=== PATIENT | male | born 1935 | race Two or more races ===

== ENCOUNTER 2016-10-09 23:58 | Inpatient (IN) | payer MEDICARE, OTHER ==
[~2016-10-09] VITALS: Ht 162.6 cm; Wt 41.3 kg
[2016-10-10] VITALS (8 sets, daily range): BP systolic 122–141; BP diastolic 54–63
--- NOTE | 2016-10-10 00:05 | NUR ---
PT CHENCHO FROM HALFWAY, PER EMS PT FAMILY WANTED PT TO LEAVE THE HALFWAY BECAUSE PT THOUGHT THE HALFWAY WASNT TAKING CARE OF THE PT, PT IS A TRACH TO VENT, RT IN ROOM, AT BEDSIDE, PT STATES PT WAS DIAPHRETIC PRIOR TO ARRIVAL BUT WAS NOT UPON ARRIVAL TO ER, IV PLACED PRIOR TO ARRIVAL, PT IN GOWN, ON MONITOR, WILL CONTINUE TO MONITOR.
[2016-10-10 00:32] LABS: BASOPHILS % (AUTO) 0.5 % (0.0-2.0); EOSINOPHILS # (AUTO) 0.1 /CMM (0.0-0.7); HEMATOCRIT 25 % (39-51); HEMOGLOBIN 8.2 g/dL (13.5-17.5); LYMPHOCYTES # (AUTO) 1.3 /CMM (0.8-4.8); LYMPHOCYTES % (AUTO) 19.5 % (20.0-44.0); MEAN CORPUSCULAR HEMOGLOBIN 30 PG (26.0-33.0); MEAN CORPUSCULAR HGB CONC 32 g/dl (31.0-36.0); MEAN CORPUSCULAR VOLUME 91 fL (80-96); MONOCYTES # (AUTO) 0.3 /CMM (0.1-1.30); NEUTROPHILS # (AUTO) 4.8 /CMM (1.8-8.9); PLATELET COUNT (AUTO) 309 /CMM (150-450); RDW COEFFICIENT OF VARIATION 15.1 (11.5-15.0); RED BLOOD CELL COUNT(AUTO) 2.77 MIL/uL (4.5-6.0); WHITE BLOOD COUNT (AUTO) 6.5 K/uL (4.3-11.0)
[2016-10-10 00:44] LABS: CALCIUM, SERUM 9.3 mg/dL (8.5-10.1); CARBON DIOXIDE 38 mmol/L (21-32); CHLORIDE 104 mmol/L (98-107); CREATININE 0.6 mg/dL (0.6-1.3); GLUCOSE 107 mg/dL (74-106); POTASSIUM 3.9 mmol/L (3.5-5.1); SODIUM SERUM 143 mmol/L (136-145); UREA NITROGEN, BLOOD 22 mg/dL (7-18)
[2016-10-10 00:49] LABS: ALANINE AMINOTRANSFERASE 29 U/L (12-78); ALBUMIN 2.3 g/dL (3.4-5.0); ALKALINE PHOSPHATASE 87 U/L (46-116); ASPARTATE AMINOTRANSFERASE 23 U/L (15-37); BILIRUBIN,TOTAL 0.2 mg/dL (0.2-1.0); LIPASE 113 U/L (73-393)
--- NOTE | 2016-10-10 00:59 | NUR ---
URINE COLLECTED BY STRAIGHT CATH PER ORDER
[2016-10-10 01:12] LABS: APPEARANCE,URINE SL CLOUDY (CLEAR); BILIRUBIN,URINE NEGATIVE (NEGATIVE); BLOOD, URINE 1+ Ery/uL (NEGATIVE); COLOR,URINE YELLOW (YELLOW); KETONES,URINE NEGATIVE (NEGATIVE); LEUKOCYTE ESTERASE ,URINE TRACE (NEGATIVE); NITRITE, URINE NEGATIVE (NEGATIVE); PH,URINE 5.5 (5.0-8.0); PROTEIN,URINE 2+ mg/dl (NEGATIVE); UGLUCOSE NEGATIVE (NEGATIVE); UROBILINOGEN,URINE 0.2 EU/dL (0.2)
[2016-10-10 01:16] LABS: SQUAMOUS EPITHELIAL CELL,UR Few /HPF (None Seen)
[2016-10-10 01:17] LABS: BACTERIA,URINE Moderate /HPF (None Seen)
[2016-10-10] MEDS ORDERED: CEFTRIAXONE 1GM BAG (ER ONLY) 50 ML IV ONE (01:53)
[2016-10-10] MEDS ORDERED: CEFTRIAXONE 1 G in IV D5W 50 ML IV SCH (02:00)
[2016-10-10] MEDS ORDERED: ONDANSETRON HCL/PF 4 MG/2 ML VIAL IVP PRN (02:00)
[2016-10-10] MEDS ORDERED: MAGNESIUM HYDROXIDE 30 ML UDC PO PRN (02:00)
[2016-10-10] MEDS ORDERED: Z GUARD REMEDY 2 OZ OINT TP PRN (02:00)
[2016-10-10] MEDS ORDERED: CEFTRIAXONE 1GM BAG (ER ONLY) 1 GM/50 ML PIGGYBACK IV ONE (02:00)
[2016-10-10] MEDS ORDERED: MAG HYDROX/AL HYDROX/SIMETH 30 ML UDC PO PRN (02:00)
[2016-10-10] MEDS ORDERED: ALBU0.633 IH (02:29)
[2016-10-10] MEDS ORDERED: PSYL0.4C GT (02:29)
[2016-10-10] MEDS ORDERED: ACET-73 PO (02:29)
[2016-10-10] MEDS ORDERED: MULT-331 GT (02:29)
[2016-10-10] MEDS ORDERED: AMLO10TA2 GT (02:29)
[2016-10-10] MEDS ORDERED: HYDR-4076 PO (02:29)
[2016-10-10] MEDS ORDERED: FERR-58 GT (02:29)
[2016-10-10] MEDS ORDERED: ONDA-25 PO (02:29)
[2016-10-10] MEDS ORDERED: LANS30CA56 GT (02:29)
[2016-10-10] MEDS ORDERED: ENOX40DI SUBCUT (02:29)
[2016-10-10] MEDS ORDERED: LISI10TA5 GT (02:29)
--- NOTE | 2016-10-10 02:35 | NUR ---
RN OPENING NOTES: RECEIVED PATIENT FROM ER VIA GURNEY, PATIENT TRACHED TO [facility] VENT WITH SETTINGS ORDERED, NOT IN APPARENT DISTRESS. RESPONSIVE TO VERBAL AND TACTILE, WITH SPONTANEOUS EYE OPENING, EYE TRACKS AND NODS RESPONSE. SINUS ARRHYTHMIA ON MONITOR HR AT 87 BPM. IV ACCESS ON R AC G20 PATENT AND INTACT, WITH ROCEPHIN 1 GRAM RUNNING; SKIN CHECK DONE AND PHOTODOCUMENTATION FILED ON CHART. GT INTACT AND PATENT, CLAMPED AT THIS TIME. PATIENT URINATING WELL ALSO NOTED WITH 1 LARGE FORMED STOOL. ADMITTING ORDERED NOTED AND CARRIED OUT. TO CONTINUE TO MONITOR PATIENT.
[2016-10-10] MEDS ORDERED: LACT-209 GT (03:51)
[2016-10-10] MEDS ORDERED: FIBERSOURCE HN 1,000 ML BOTTLE GT PRN (06:30)
--- NOTE | 2016-10-10 06:47 | NUR ---
RN NOTES: 604 CALLED REDUCER SUPERVISOR MAINSPRING FABRICATION JEYSON, TO REMIND TO VERIFY MED RECON. AGREED TO CONTINUE TUBE FEEDING FROM PREVIOUS FACILITY ([facility] TO FIBERSOURCE) AND NO IVF ORDERED. PATIENT REMAINED ON BED NOT IN APPARENT DISTRESS. KEPT TRACH TO [facility] VENT SETTINGS ORDERED TOLERATED WELL. COOLING MEASURES RENDERED. NOW AFEBRILE. SKIN CARE RENDERED. STARTED PATIENT ON FEEDING ORDERED. ASPIRATION [id number] ENSURED. CONTINUOUSLY MONITORED ACCORDINGLY. TO ENDORSE TO AM SHIFT RN.
--- NOTE | 2016-10-10 07:33 | NUR ---
CHILDREN'S MINISTRY DIRECTOR NOTES RECEIVED PT BY BED RESTING COMFORTABLY. PT IS VENT TRACH DEPENDENT BUT CAN BE AROUSED. NO SOB NOTED. TOLERATING VENT SETTINGS WELL. RIGHT ARM IV GAUGE 20 DRY AND INTACT. SR WITH PACS ON THE MONITOR HR 75. GTUBE FEEDING RUNNING AT 75ML/HR NO RESIDUAL. BED LOCKED AND IN LOWEST POSITION, CALL LIGHT WITHIN EASY REACH. WILL CONTINUE TO MONITOR.
--- NOTE | 2016-10-10 09:53 | NUR ---
TOUR PRODUCTION SUPERVISOR NOTE DR POLANCO AT BEDSIDE AWARE THAT BUN 22 WITH ORDER TO FLUSH G TUBE WITH 200 ML Q 4 HOUR , ORDER CARRIED OUT
--- NOTE | 2016-10-10 10:09 | NUR ---
HELP AID NOTE DR POLANCO AT BEDSIDE, NOTIFIED TO F/O WITH MED RECON.
--- NOTE | 2016-10-10 11:43 | NUR ---
EMT/DISPATCHER NOTES SPOKE WITH DIETARY, GTUBE RATE CHANGED TO 60ML/HR. MULTIVITAMIN AND VIT C ORDERED. Addendum: 10/10/16 at 1145 by VERNA PIERCE RN ALEX JOHNMIXING MACHINE OPERATOR NURSE AT BEDSIDE, WOUND CONSULT DONE. I MATTRESS WILL BE PLACED.
[2016-10-10] MEDS: Z GUARD REMEDY 2 OZ OINT TP SCH (13:12)
[2016-10-10] MEDS: ACETAMINOPHEN 325 MG TABLET PO PRN ×2 (13:56→22:34)
[2016-10-10 15:29] LABS: ABG BASE EXCESS 12.6 mmol/L; ABG PCO2 58.6 mmHg (35.0-45.0); ABG PH 7.434 (7.350-7.450); ABG PO2 101.9 mmHg (75.0-100.0); AaDO2 115.9 mmHg; COHb 1.2 % (0.5-1.5); MetHb 1.3 % (0.0-1.5); O2Hb 94.6 % (94.0-97.0); PEEP,BG 5 cm H2O; SITE, ABG Right Radial; VT, ABG 400 mL
--- NOTE | 2016-10-10 17:14 | NUR ---
DESKTOP SUPPORT MANAGER NOTE [facility] MATTRESS APPLIED, PT REPOSITIONED. FAMILY AND BEDSIDE WILL CONTINUE TO MONITOR.
--- NOTE | 2016-10-10 18:53 | NUR ---
RN NOTES PT RESTING COMFORTABLY WITH AT BEDSIDE. NO SOB NOTED. TOLERATING VENT SETTINGS. TOLERATING GTUBE FEEDING. NO CHANGES NOTED AT THIS TIME. BED LOCKED AND IN LOWEST POSITION, SIDE RAILS UPX3, CALL LIGHT WITHIN REACH.
--- NOTE | 2016-10-10 19:30 | NUR ---
LOSS PREVENTION AUDITOR INITIAL NOTE PT RECEIVED IN BED WITH FAMILY AT BEDSIDE. A/O X1-2, NON VERBAL BUT MOUTHS WORDS AND ABLE TO MAKE NEEDS KNOWN. ON MECH VENT WITH SETTINGS WELL TOLERATED AND SATURATING WELL AT 100%. TELE- 85 SR WITH PVC'S. IV R HAND CLEAN, DRY, INTACT AND FLUSHING WELL. GTUBE CLEAN AND PATENT WITHOUT RESIDUALS NOTED AT THIS TIME. ALL SAFETY MEASURES IN PLACE. CALL LIGHT WITHIN EASY REACH. WILL CONTINUE TO MONITOR.
[2016-10-10] MEDS: HYDROCODONE/APAP 5/325MG 1 EACH TABLET PO PRN (20:20)
[2016-10-10] MEDS: IPRATROPIUM NEB FS 0.5 MG/2.5 ML AMPUL.NEB NEB SCH (20:23)
[2016-10-10] MEDS: ALBUTEROL HALF STRENGTH 1.25 MG/3 ML VIAL.NEB NEB SCH (20:23)
[2016-10-10] MEDS: CEFTRIAXONE 1 G in IV D5W 50 ML IV SCH (22:33)
[2016-10-10] MEDS: FIBERSOURCE HN 1,000 ML BOTTLE GT PRN (22:34)
[2016-10-11] VITALS: BP 142/70
[2016-10-11] MEDS: ALBUTEROL HALF STRENGTH 1.25 MG/3 ML VIAL.NEB NEB SCH ×4 (02:07→19:57)
[2016-10-11] MEDS: IPRATROPIUM NEB FS 0.5 MG/2.5 ML AMPUL.NEB NEB SCH ×4 (02:07→19:57)
[2016-10-11 04:00] VITALS: BP 133/55
[2016-10-11 07:14] LABS: BASOPHILS % (AUTO) 0.2 % (0.0-2.0); EOSINOPHILS # (AUTO) 0.2 /CMM (0.0-0.7); HEMATOCRIT 23 % (39-51); HEMOGLOBIN 7.6 g/dL (13.5-17.5); LYMPHOCYTES # (AUTO) 1.2 /CMM (0.8-4.8); LYMPHOCYTES % (AUTO) 13.2 % (20.0-44.0); MEAN CORPUSCULAR HEMOGLOBIN 31 PG (26.0-33.0); MEAN CORPUSCULAR HGB CONC 33 g/dl (31.0-36.0); MEAN CORPUSCULAR VOLUME 92 fL (80-96); MONOCYTES # (AUTO) 0.6 /CMM (0.1-1.30); MONOCYTES % (AUTO) 6.9 % (2.0-12.0); NEUTROPHILS # (AUTO) 7.1 /CMM (1.8-8.9); NEUTROPHILS % (AUTO) 77.7 % (43.0-81.0); PLATELET COUNT (AUTO) 293 /CMM (150-450); RDW COEFFICIENT OF VARIATION 15.1 (11.5-15.0); RED BLOOD CELL COUNT(AUTO) 2.48 MIL/uL (4.5-6.0); WHITE BLOOD COUNT (AUTO) 9.1 K/uL (4.3-11.0)
[2016-10-11 07:56] LABS: CALCIUM, SERUM 9.1 mg/dL (8.5-10.1); CARBON DIOXIDE 38 mmol/L (21-32); CHLORIDE 106 mmol/L (98-107); CREATININE 0.7 mg/dL (0.6-1.3); GLUCOSE 131 mg/dL (74-106); MAGNESIUM 2.2 mg/dL (1.8-2.4); PHOSPHORUS 5.1 mg/dL (2.5-4.9); POTASSIUM 4.5 mmol/L (3.5-5.1); SODIUM SERUM 147 mmol/L (136-145); UREA NITROGEN, BLOOD 29 mg/dL (7-18)
[2016-10-11 08:00] VITALS: BP_SYST 133; BP_SYST 136; BP_DIAS 55; BP_DIAS 64
--- NOTE | 2016-10-11 08:00 | NUR ---
SALES MANAGEMENT INTERN INITIAL NOTE PT RECEIVED IN BED . A/O X1-2, NON VERBAL BUT MOUTHS WORDS AND ABLE TO MAKE NEEDS KNOWN. ON MECH VENT WITH SETTINGS WELL TOLERATED AND SATURATING WELL AT 100%. TELE-SR WITH . IV R HAND CLEAN, DRY, INTACT AND FLUSHING WELL. GTUBE CLEAN AND PATENT WITHOUT RESIDUALS NOTED AT THIS TIME. ALL SAFETY MEASURES IN PLACE. CALL LIGHT WITHIN EASY REACH. WILL CONTINUE TO MON, WITH TRACH TO VENT SETTING ORDERED , AMBU BAG AT HOB, KEEP HOB ELEVATED AT ALL TIME, PLAN OF CARE DISCUSSED WITH PATIENT.WILL CONT TO MONITOR CLOSELY ,MOUTH CARE DONE SUCTION DONE RT AT BEDSIDE
[2016-10-11] MEDS: ASCORBIC ACID 500 MG TABLET GT SCH (09:27)
[2016-10-11] MEDS: MULTIVITAMINS,THERAGRAN 1 UDTAB TABLET GT SCH (09:28)
[2016-10-11] MEDS: Z GUARD REMEDY 2 OZ OINT TP SCH (09:28)
[2016-10-11] MEDS: HYDROCODONE/APAP 5/325MG 1 EACH TABLET PO PRN (09:40)
[2016-10-11 10:03] LABS: CHOLESTEROL 155 mg/dL (<200); HDL CHOLESTEROL 44 mg/dL (40-60); LDL 103 mg/dL (0-99); TRIGLYCERIDES 83 mg/dL (30-150)
[2016-10-11 12:00] VITALS: BP_SYST 120; BP_SYST 121; BP_DIAS 60
--- NOTE | 2016-10-11 12:30 | NUR ---
P 3 ARMAMENT/ORDNANCE IMA TECHNICIAN NOTE KEEP CLEAN DRY ,CONT G TUBE FEEDING ,ALL NEEDS ATTENDED ,WILL CONT TO MONITOR CLOSELY
[2016-10-11 16:00] VITALS: BP 133/66
[2016-10-11 18:10] LABS: THYROID STIMULATING HORMONE 3.213 uIU/mL (0.358-3.74)
--- NOTE | 2016-10-11 18:33 | NUR ---
MANUFACTURING ASSEMBLER NOTE ALL NEEDS ATTENDED NOT IN ACUTE DISTRESS
--- NOTE | 2016-10-11 19:30 | NUR ---
NIGHT WAREHOUSE MANAGER INITIAL NOTE PT RECEIVED COMFORTABLE IN BED. A/O X1-2 AND ABLE TO MOUTH SOME WORDS. ON MECH VENT WITH SETTINGS WELL TOLERATED. NO ACUTE DISTRESS NOTED AT THIS TIME. NO C/O PAIN. IV R HAND AND R FOREARM CLEAN, FLUSHING WELL AND INTACT. GTUBE CLEAN, FLUSHING WELL WITHOUT RESIDUALS AND FEEDING WELL TOLERATED. CALL LIGHT WITHIN REACH. WILL CONTINUE TO MONITOR.
[2016-10-11 20:00] VITALS: BP 127/68
[2016-10-11] MEDS: CEFTRIAXONE 1 G in IV D5W 50 ML IV SCH (23:37)
[2016-10-12] VITALS: BP 96/53
[2016-10-12] MEDS: FIBERSOURCE HN 1,000 ML BOTTLE GT PRN ×2 (00:57→23:29)
[2016-10-12] MEDS: IPRATROPIUM NEB FS 0.5 MG/2.5 ML AMPUL.NEB NEB SCH ×4 (02:12→20:00)
[2016-10-12] MEDS: ALBUTEROL HALF STRENGTH 1.25 MG/3 ML VIAL.NEB NEB SCH ×4 (02:12→20:00)
[2016-10-12 04:00] VITALS: BP 124/49
[2016-10-12] MEDS: HYDROCODONE/APAP 5/325MG 1 EACH TABLET PO PRN ×2 (05:23→15:03)
--- NOTE | 2016-10-12 06:45 | NUR ---
AUTHORIZATION NURSE CLOSING NOTE PT REMAINED STABLE DURING SHIFT. ALL NEEDS ATTENDED TO PROMPTLY. PAIN MANAGED WITH PAIN MEDICATION ADMINISTERED AT 0523. VENT SETTINGS WELL TOLERATED. IV SITE INTACT AND CLEAN. GTUBE IN PLACE AND FLUSHING WELL. NO ACUTE DISTRESS NOTED. ALL SAFETY MEASURES IN PLACE. WILL ENDORSE TO NEXT SHIFT FOR ABDULAZIZ.
--- NOTE | 2016-10-12 07:46 | NUR ---
RN INITIAL NOTE RECEIVED PT FROM LAKEISHA PM SHIFT FOR ABDULAZIZ. PT NON VERBAL MOTH WORDS. TELE SR WITH PVC. GTF FIBERSOURCE @ 60 ML/HR. IV R HAND PATENT FLUSHED AND INTACT. WILL CONTINUE TO MONITOR CLOSELY ALL SAFETY MEASURES IN PLACE.
--- NOTE | 2016-10-12 07:49 | NUR ---
RN INITIAL NOTE RECEIVED PT FROM CARLEEN PM SHIFT FOR ABDULAZIZ. PT NC 2 L A/OX1 CONFUSED. TELE SB FC INTACT. NGT R NARE GLYTROL 70 ML/HR . IV R WRIST # 22 PATENT FLUSHED AND INTACT. JUWAN MIDLINE D51/2 NS @ 100 ML/HR. WILL CONTINUE TO MONITOR CLOSELY. ALL SAFETY MEASURES IN PLACE.
[2016-10-12 08:00] VITALS: BP 132/57
[2016-10-12] MEDS: Z GUARD REMEDY 2 OZ OINT TP SCH (08:40)
[2016-10-12] MEDS: MULTIVITAMINS,THERAGRAN 1 UDTAB TABLET GT SCH (08:40)
[2016-10-12] MEDS: ASCORBIC ACID 500 MG TABLET GT SCH (08:40)
[2016-10-12 12:00] VITALS: BP 125/64
[2016-10-12] MEDS: ACETAMINOPHEN 325 MG TABLET PO PRN (13:03)
[2016-10-12 16:00] VITALS: BP 119/58
[2016-10-12 16:24] LABS: BASOPHILS % (AUTO) 0.3 % (0.0-2.0); EOSINOPHILS # (AUTO) 0.2 /CMM (0.0-0.7); EOSINOPHILS % (AUTO) 2.7 % (0.0-6.0); HEMATOCRIT 23 % (39-51); HEMOGLOBIN 7.3 g/dL (13.5-17.5); LYMPHOCYTES # (AUTO) 1.3 /CMM (0.8-4.8); LYMPHOCYTES % (AUTO) 20.6 % (20.0-44.0); MEAN CORPUSCULAR HEMOGLOBIN 30 PG (26.0-33.0); MEAN CORPUSCULAR HGB CONC 32 g/dl (31.0-36.0); MEAN CORPUSCULAR VOLUME 92 fL (80-96); MONOCYTES # (AUTO) 0.6 /CMM (0.1-1.30); MONOCYTES % (AUTO) 9.3 % (2.0-12.0); NEUTROPHILS # (AUTO) 4.2 /CMM (1.8-8.9); NEUTROPHILS % (AUTO) 67.1 % (43.0-81.0); PLATELET COUNT (AUTO) 278 /CMM (150-450); RDW COEFFICIENT OF VARIATION 15.1 (11.5-15.0); RED BLOOD CELL COUNT(AUTO) 2.46 MIL/uL (4.5-6.0); WHITE BLOOD COUNT (AUTO) 6.3 K/uL (4.3-11.0)
--- NOTE | 2016-10-12 19:25 | NUR ---
RN CLOSING NOTE REPORT GIVEN TO LAKEISHA PM SHIFT FOR ABDULAZIZ. PT NC 2 L A/OX1 CONFUSED. TELE SR. FC INTACT. NGT R NARE GLYTROL 70 ML/HR . IV R WRIST # 22 PATENT FLUSHED AND INTACT. JUWAN MIDLINE D51/2 NS @ 100 ML/HR. WILL CONTINUE TO MONITOR CLOSELY. ALL SAFETY MEASURES IN PLACE.
--- NOTE | 2016-10-12 19:30 | NUR ---
THEATRE DIRECTOR INITIAL NOTE PT RECEIVED RESTING IN BED WITH AT BEDSIDE. A/O X1-2 AND ABLE TO MOUTH WORDS. ON [facility] VENT SHILEY 6/ AC 15/ TV 400/ FIO2 35%/ PEEP 5 AND SATURATING WELL. BREATHING REGULAR, EVEN AND UNLABORED. IV R HAND CLEAN AND FLUSHING WELL. TELE- SINUS RHYTHM 70'S. GTUBE IN PLACE AND FLUSHING WELL WITH FEEDING WELL TOLERATED. CALL LIGHT WITHIN EASY REACH AT ALL TIMES. HOB AT 35 DEGREES. WILL CONTINUE TO MONITOR FOR CHANGES.
[2016-10-12 20:00] VITALS: BP_SYST 115; BP_DIAS 61; BP_DIAS 65
[2016-10-12] MEDS: CEFTRIAXONE 1 G in IV D5W 50 ML IV SCH (23:20)
[2016-10-13] VITALS: BP 142/69
[2016-10-13] MEDS: IPRATROPIUM NEB FS 0.5 MG/2.5 ML AMPUL.NEB NEB SCH ×4 (01:31→19:25)
[2016-10-13] MEDS: ALBUTEROL HALF STRENGTH 1.25 MG/3 ML VIAL.NEB NEB SCH ×4 (01:31→19:25)
[2016-10-13 04:00] VITALS: BP 154/70
[2016-10-13 06:29] LABS: BASOPHILS % (AUTO) 0.1 % (0.0-2.0); EOSINOPHILS # (AUTO) 0.2 /CMM (0.0-0.7); EOSINOPHILS % (AUTO) 2.1 % (0.0-6.0); HEMATOCRIT 27 % (39-51); LYMPHOCYTES # (AUTO) 1.9 /CMM (0.8-4.8); LYMPHOCYTES % (AUTO) 18.6 % (20.0-44.0); MEAN CORPUSCULAR HEMOGLOBIN 31 PG (26.0-33.0); MEAN CORPUSCULAR HGB CONC 33 g/dl (31.0-36.0); MEAN CORPUSCULAR VOLUME 92 fL (80-96); MONOCYTES # (AUTO) 0.6 /CMM (0.1-1.30); MONOCYTES % (AUTO) 5.6 % (2.0-12.0); NEUTROPHILS # (AUTO) 7.4 /CMM (1.8-8.9); NEUTROPHILS % (AUTO) 73.6 % (43.0-81.0); PLATELET COUNT (AUTO) 283 /CMM (150-450); RDW COEFFICIENT OF VARIATION 14.9 (11.5-15.0); RED BLOOD CELL COUNT(AUTO) 2.95 MIL/uL (4.5-6.0); WHITE BLOOD COUNT (AUTO) 10.1 K/uL (4.3-11.0)
--- NOTE | 2016-10-13 07:22 | NUR ---
PROTECTION SPECIALIST CLOSING NOTE NO ACUTE DISTRESS NOTED. VENT SETTINGS WELL TOLERATED. ALL NEEDS ATTENDED TO AND MET PROMPTLY. CALL LIGHT WITHIN EASY REACH. ALL SAFETY MEASURES IN PLACE. WILL ENDORSE TO NEXT SHIFT FOR ABDULAZIZ.
--- NOTE | 2016-10-13 07:34 | NUR ---
RN INITIAL NOTE RECEIVED REPORT FROM LAKEISHA CARDONA SHIFT FOR ABDULAZIZ. PT NC 2L . A/OX1-2 MOUTH WORDS. TELE SR. VENT SETTING SHILEY #6 AC 15 TV 400 FI02 35%. PEEP. IV HAND#22 PATENT FLUSHED AND INTACT. GTF FIBERSOURCE @ 60 ML/HR PLACEMENT CK AND PATENT. WILL CONTINUE TO MONITOR CLOSELY. ALL SAFETY MEASURES IN PLACE.
[2016-10-13 08:00] VITALS: BP 124/60
[2016-10-13] MEDS: ASCORBIC ACID 500 MG TABLET GT SCH (08:42)
[2016-10-13] MEDS: HYDROCODONE/APAP 5/325MG 1 EACH TABLET PO PRN ×2 (08:48→20:32)
[2016-10-13] MEDS: MULTIVITAMINS,THERAGRAN 1 UDTAB TABLET GT SCH (08:51)
[2016-10-13] MEDS: Z GUARD REMEDY 2 OZ OINT TP SCH (08:59)
[2016-10-13 12:00] VITALS: BP 104/56
--- NOTE | 2016-10-13 13:35 | NUR ---
WOUND CARE CONSULT NOTE ( LATE ENTRY FOR 10/10/16) PATIENT SEEN AND SKIN INTEGRITY ASSESSMENT DONE. SEE ALLIANCES CONSULTANT ASSESSMENT IN [facility] FOR 10/10/16 FOR ALL RECOMMENDATIONS. TREATMENT PLANS DISCUSSED WITH MD AND MD IN AGREEMENT. PATIENT WITH VAHID AT 11. 1ST STEP LOW AIRLOSS MATTRESS TO BE PLACE WHEN AVAILABLE IN THE UNIT. ALL SKIN MANAGMENT AND PLAN OF CARE DISCUSSED WITH NURSING AT THE BEDSIDE. CONTINUE TURNING SCHED Q 2 HOURS AND BILATERAL HEEL FLOATING. CONTINUE USE OF Z GUARD CURRENTLY ORDERED.
[2016-10-13 16:00] VITALS: BP_SYST 104; BP_SYST 121; BP_DIAS 56; BP_DIAS 58
--- NOTE | 2016-10-13 19:48 | NUR ---
RN INITIAL NOTE RECEIVED REPORT FROM HOANG AM SHIFT FOR ABDULAZIZ. PT NC 2L . A/OX1-2 MOUTH WORDS. TELE SR. VENT SETTING SHILEY #6 AC 15 TV 400 FI02 35%. PEEP. IV HAND#22 PATENT FLUSHED AND INTACT. GTF FIBERSOURCE @ 60 ML/HR PLACEMENT CK AND PATENT. WILL CONTINUE TO MONITOR CLOSELY. ALL SAFETY MEASURES IN PLACE.
[2016-10-13 20:00] VITALS: BP 102/56
--- NOTE | 2016-10-13 20:04 | NUR ---
RN CLOSING NOTE REPORT GIVEN TO DEBBY JOHN PM SHIFT FOR ABDULAZIZ. PT NC 2L . A/OX1-2 MOUTH WORDS. TELE SR. VENT SETTING SHILEY #6 AC 15 TV 400 FI02 35%. PEEP. IV HAND#22 PATENT FLUSHED AND INTACT. GTF FIBERSOURCE @ 60 ML/HR PATENT. ALL SAFETY MEASURES IN PLACE. PT CLEAN AND DRY.
--- NOTE | 2016-10-13 22:12 | NUR ---
PT RECEIVED FROM AM SHIFT NURSE HOANG FOR ABDULAZIZ, AT 2200 PM UPON PROVIDING PM CARE DAHIANA RESIDENTIAL APPRAISER NOTED OLD LT ANKLE SKIN TEAR, PT GIVEN NORCO [phone] PRN FOR PAIN, PHOTO TAKEN, MEPILEX APPLIED TO RED AREA, REPOSITIONED PT, APPEARS COMFORTABLE AFTER CARE.
[2016-10-13] MEDS: CEFTRIAXONE 1 G in IV D5W 50 ML IV SCH (23:33)
[2016-10-14] VITALS: BP_SYST 127; BP_SYST 91; BP_DIAS 40; BP_DIAS 57
[2016-10-14] MEDS: IPRATROPIUM NEB FS 0.5 MG/2.5 ML AMPUL.NEB NEB SCH ×4 (01:35→19:39)
[2016-10-14] MEDS: ALBUTEROL HALF STRENGTH 1.25 MG/3 ML VIAL.NEB NEB SCH ×4 (01:35→19:39)
[2016-10-14] MEDS: HYDROCODONE/APAP 5/325MG 1 EACH TABLET PO PRN ×3 (01:58→22:38)
[2016-10-14 04:00] VITALS: BP 123/48
[2016-10-14] MEDS: FIBERSOURCE HN 1,000 ML BOTTLE GT PRN ×2 (04:22→22:48)
--- NOTE | 2016-10-14 06:18 | NUR ---
RN CLOSING NOTE ENDORSED REPORT TO AM SHIFT FOR ABDULAZIZ. PT NC 2L . A/OX1-2 MOUTH WORDS. TELE SR. VENT SETTING SHILEY #6 AC 15 TV 400 FI02 35%. PEEP. IV HAND#22 PATENT FLUSHED AND INTACT. GTF FIBERSOURCE @ 60 ML/HR PLACEMENT CK AND PATENT. WILL CONTINUE TO MONITOR CLOSELY. ALL SAFETY MEASURES IN PLACE.
[2016-10-14 08:00] VITALS: BP 116/52
[2016-10-14] MEDS: MULTIVITAMINS,THERAGRAN 1 UDTAB TABLET GT SCH (08:30)
[2016-10-14] MEDS: ASCORBIC ACID 500 MG TABLET GT SCH (08:31)
[2016-10-14] MEDS: Z GUARD REMEDY 2 OZ OINT TP SCH (09:00)
[2016-10-14 12:00] VITALS: BP 129/51
[2016-10-14 16:00] VITALS: BP 144/59
--- NOTE | 2016-10-14 19:47 | NUR ---
RN INITIAL TELE NOTE RECEIVED REPORT FROM CAROLINE SEYMOUR FOR ABDULAZIZ. PT NC 2L . A/OX1-2 MOUTH WORDS. TELE SR. VENT SETTING SHILEY #6 AC 15 TV 400 FI02 35%. PEEP. IV HAND#22 PATENT FLUSHED AND INTACT. GTF FIBERSOURCE @ 60 ML/HR PLACEMENT CK AND PATENT. WILL CONTINUE TO MONITOR CLOSELY. ALL SAFETY MEASURES IN PLACE.
[2016-10-14 20:00] VITALS: BP 138/65
[2016-10-14] MEDS: CEFTRIAXONE 1 G in IV D5W 50 ML IV SCH (22:37)
[2016-10-15] VITALS (7 sets, daily range): BP systolic 119–157; BP diastolic 57–70
[2016-10-15] MEDS: IPRATROPIUM NEB FS 0.5 MG/2.5 ML AMPUL.NEB NEB SCH ×4 (01:24→20:06)
[2016-10-15] MEDS: ALBUTEROL HALF STRENGTH 1.25 MG/3 ML VIAL.NEB NEB SCH ×4 (01:24→20:06)
--- NOTE | 2016-10-15 06:30 | NUR ---
RN CLOSING TELE NOTE ENDORSED REPORT TO AM SHIFT FOR ABDULAZIZ. PT NC 2L . A/OX1-2 MOUTH WORDS. TELE SR. VENT SETTING SHILEY #6 AC 15 TV 400 FI02 35%. PEEP. IV HAND#22 PATENT FLUSHED AND INTACT. GTF FIBERSOURCE @ 60 ML/HR PLACEMENT CK AND PATENT. WILL CONTINUE TO MONITOR CLOSELY. ALL SAFETY MEASURES IN PLACE.
--- NOTE | 2016-10-15 07:50 | NUR ---
TECHNICAL PRODUCT MANAGER OPENING NOTE PATIENT IS ALERT AND ORIENTED x2. MOUTHS WORDS. IS ON VENT AND HAS TRACH. TRACH IS SHILEY #6. NO FACIAL GRIMACING NOTED FOR PAIN. NO SOB OR DISTRESS NOTED. CALL LIGHT WITHIN REACH AT ALL TIMES. SAFETY MEASURES IMPLEMENTED. IV INTACT AND PATENT NO REDNESS OR SWELLING NOTED. G-TUBE SITE INTACT AND PATENT NO REDNESS OR SWELLING NOTED, TOLERATING FEEDING WELL. NO RESIDUAL NOTED. PATIENT CAN COMMUNICATE THROUGH PERSONAL WHITE BOARD AND MARKER AT BEDSIDE. WOUND TREATMENT TO BE DONE. TO BE DISCHARGED TO A SUBACUTE. WILL CONTINUE TO MONITOR
[2016-10-15] MEDS: ASCORBIC ACID 500 MG TABLET GT SCH (08:39)
[2016-10-15] MEDS: MULTIVITAMINS,THERAGRAN 1 UDTAB TABLET GT SCH (08:39)
[2016-10-15] MEDS: Z GUARD REMEDY 2 OZ OINT TP SCH (08:42)
[2016-10-15] MEDS: HYDROCODONE/APAP 5/325MG 1 EACH TABLET PO PRN (16:44)
[2016-10-15] MEDS: FIBERSOURCE HN 1,000 ML BOTTLE GT PRN (16:50)
--- NOTE | 2016-10-15 18:37 | NUR ---
MOBILE LOUNGE DRIVER OR OPERATOR CLOSING NOTE PATIENT IS ALERT AND ORIENTED x2 MOUTHS WORDS. ABLE TO COMMUNICATE THROUGH WHITE BOARD AT PATIENT'S BEDSIDE. ON VENT, TRACH CARE PROVIDED. SUCTIONED NEEDED. IV INTACT AND PATENT NO REDNESS OR SWELLING NOTED. G-TUBE FEEDING RUNNING AT 60 ML/HR, TOLERATING WELL. NO RESIDUAL AT THIS TIME. WOUND TREATMENT DONE. AWAITING TO FIND PLACEMENT AT [facility], SPOKE WITH YURIY FROM CASE MANAGEMENT. NO PAIN NOTED AT THIS TIME. NO SOB OR DISTRESS NOTED. WILL ENDORSE TO CYBER SECURITY ENGINEER NURSE
--- NOTE | 2016-10-15 19:30 | NUR ---
RN OPENING NOTES: RECEIVED PATIENT ON BED AWAKE ALERT X1 AND RESPONSIVE, ABLE TO FOLLOW COMMANDS AND MOUTH WORDS. [facility], SETTINGS ORDERED.SR ON MONITOR HR AT 80'S. GT INTACT. TOLERATED FEEDING WELL, NO RESIDUALS NOTED. IV ACCESS ON RFA G24 INFILTRATED. TO REINSERT NEW IV ACCESS. SAFETY MEASURES ENSURED. ASPIRATION PRECAUTIONS ENSURED. NO COMPLAINTS OF PAIN AT THIS TIME. CONTINUOUSLY MONITORED PATIENT.
--- NOTE | 2016-10-15 19:30 | NUR ---
RN NOTES: UPON ASSESSMENT, NOTED PATIENT HAS LEFT ANKLE OPEN WOUND, WITH MEPILEX ON. NOTED NO PHOTODOCUMENTATION FILED. PHOTO TAKEN. INCIDENT REPORT TO BE MADE. OFFLOADED AREA. CONTINUOUSLY MONITORED PATIENT.
[2016-10-15] MEDS: CEFTRIAXONE 1 G in IV D5W 50 ML IV SCH (23:31)
[2016-10-16] VITALS: BP 126/64
[2016-10-16] MEDS: ALBUTEROL HALF STRENGTH 1.25 MG/3 ML VIAL.NEB NEB SCH ×4 (01:29→20:05)
[2016-10-16] MEDS: IPRATROPIUM NEB FS 0.5 MG/2.5 ML AMPUL.NEB NEB SCH ×4 (01:29→20:05)
[2016-10-16] MEDS: HYDROCODONE/APAP 5/325MG 1 EACH TABLET PO PRN ×3 (02:26→22:53)
[2016-10-16 04:00] VITALS: BP 101/51
--- NOTE | 2016-10-16 07:18 | NUR ---
RN CLOSING NOTES: PATIENT REMAINED STABLE IN BED. SUCTIONED NEEDED. WITH OCCASIONAL COMPLAINTS OF PAIN ON LEFT LEG, PRN PAIN MEDS PER GT GIVEN ORDERED. NO ACUTE CHANGES IN CONDITION. SAFETY MEASURES ENSURED. CONTINUOUSLY MONITORED. ENDORSED TO AM SHIFT RN.
[2016-10-16 08:00] VITALS: BP 124/56
[2016-10-16] MEDS: MULTIVITAMINS,THERAGRAN 1 UDTAB TABLET GT SCH (09:04)
[2016-10-16] MEDS: Z GUARD REMEDY 2 OZ OINT TP SCH (09:04)
[2016-10-16] MEDS: ASCORBIC ACID 500 MG TABLET GT SCH (09:04)
[2016-10-16 12:00] VITALS: BP 132/69
--- NOTE | 2016-10-16 12:08 | NUR ---
WOUND CARE CONSULT PATIENT SEEN AND LEFT LATERAL ANKLE ASSESSMENT DONE. 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 SEE GRAIN OILSEED OR PASTURE GROWER ASSESSMENT IN [facility] FOR TODAY ALONG WITH ALL RECOMMENDATIONS. 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 CONTINUE ALL SKIN MANAGMENT AND PRESSURE ULCER PREVENTION MEASURES PER CURRENT PLAN OF CARE. ALL DISCUSSED WITH NURSING STAFF. Addendum: 10/16/16 at 1210 by NICOLAS PATTERSON WNDNU Amended: Links added.
[2016-10-16] MEDS: HYDROGEL DRESSING 90 GM TUBE TP SCH (15:48)
[2016-10-16] MEDS: FIBERSOURCE HN 1,000 ML BOTTLE GT PRN (15:49)
[2016-10-16 16:00] VITALS: BP 109/53
[2016-10-16 20:00] VITALS: BP_SYST 131; BP_SYST 144; BP_DIAS 55; BP_DIAS 66
[2016-10-16] MEDS: CEFTRIAXONE 1 G in IV D5W 50 ML IV SCH (22:51)
[2016-10-17] VITALS: BP_SYST 114; BP_SYST 134; BP_DIAS 55; BP_DIAS 64
[2016-10-17] MEDS: IPRATROPIUM NEB FS 0.5 MG/2.5 ML AMPUL.NEB NEB SCH ×4 (01:40→19:38)
[2016-10-17] MEDS: ALBUTEROL HALF STRENGTH 1.25 MG/3 ML VIAL.NEB NEB SCH ×4 (01:40→19:38)
[2016-10-17 04:00] VITALS: BP 120/60
--- NOTE | 2016-10-17 07:21 | NUR ---
RN CLOSING NOTES AWAKE IN BED, PATIENT IS ALERT AND ORIENTED. ABLE TO COMMUNICATE NEEDS. COMPLAINED OF PAIN, NORCO GIVEN WITH RELIEF. NO RESPIRATORY DISTRESS OR SHORTNESS OF BREATH. WILL ENDORSE TO AM SHIFT FOR CONTINUITY OF CARE
--- NOTE | 2016-10-17 07:30 | NUR ---
RN OPENING NOTES: RECEIVED PATIENT ON BED AWAKE ALERT X1 AND RESPONSIVE, ABLE TO FOLLOW COMMANDS AND MOUTH WORDS. [facility], SETTINGS ORDERED.SR ON MONITOR HR AT 80'S. GT INTACT. TOLERATED FEEDING WELL, NO RESIDUALS NOTED.I.V CDI AND PATENT.ASPIRATION PRECAUTIONS ENSURED. SAFETY MEASURES IN PLACE.BED IN LOW AND LOCKED POSITION.NO COMPLAINTS OF PAIN AT THIS TIME. CONTINUOUSLY MONITORED PATIENT.
[2016-10-17 08:00] VITALS: BP 113/49
[2016-10-17] MEDS: ASCORBIC ACID 500 MG TABLET GT SCH (08:16)
[2016-10-17] MEDS: MULTIVITAMINS,THERAGRAN 1 UDTAB TABLET GT SCH (08:16)
[2016-10-17] MEDS: HYDROGEL DRESSING 90 GM TUBE TP SCH (09:18)
[2016-10-17] MEDS: Z GUARD REMEDY 2 OZ OINT TP SCH (09:18)
[2016-10-17] MEDS: HYDROCODONE/APAP 5/325MG 1 EACH TABLET PO PRN (11:29)
[2016-10-17 12:00] VITALS: BP 107/53
[2016-10-17 16:00] VITALS: BP 130/54
[2016-10-17 20:00] VITALS: BP 134/63
--- NOTE | 2016-10-17 20:17 | NUR ---
RN OPENING NOTES IN BED AWAKE, NO RESPIRATORY DISTRESS OR SHORTNESS OF BREATH. BREATHING EVEN AND UNLABORED. ALERT AND ORIENTED WITH EPISODES OF FORGETFULNESS. NO COMPLAINT OF PAIN OF THIS TIME. WILL CONTINUE TO MONITOR
[2016-10-17] MEDS: CEFTRIAXONE 1 G in IV D5W 50 ML IV SCH (22:27)
[2016-10-18] VITALS: BP 125/75
[2016-10-18] MEDS: ALBUTEROL HALF STRENGTH 1.25 MG/3 ML VIAL.NEB NEB SCH ×3 (00:36→14:09)
[2016-10-18] MEDS: IPRATROPIUM NEB FS 0.5 MG/2.5 ML AMPUL.NEB NEB SCH ×3 (00:36→14:09)
[2016-10-18 04:00] VITALS: BP 120/65
[2016-10-18 04:08] VITALS: BP 120/65
[2016-10-18] MEDS: FIBERSOURCE HN 1,000 ML BOTTLE GT PRN (05:47)
--- NOTE | 2016-10-18 06:30 | NUR ---
RN CLOSING NOTES PATIENT AWAKE, IN BED, ALERT AND RESPONSIVE WITH CONFUSION. NO COMPLAINT OF PAIN OR DISCOMFORT. VITAL SIGNS WNL. NO DISTRESS NOTED. WILL ENDORSE TO AM SHIFT FOR CONTINUITY OF CARE
[2016-10-18 08:00] VITALS: BP 154/64
--- NOTE | 2016-10-18 08:00 | NUR ---
FIRE PILOT NOTES: RECEIVED PATIENT ON BED AWAKE ALERT X1 AND RESPONSIVE, ABLE TO FOLLOW COMMANDS AND MOUTH WORDS. TRACH TO [facility] VENT, SETTINGS ORDERED.SR WITH PAC ON MONITOR HR AT 85. GT INTACT. TOLERATED FEEDING WELL, NO RESIDUALS NOTED.KEEP HOB ELEVATED AT ALL TIME AMBU BAG AT HOB ENSURED. SAFETY MEASURES IN PLACE.BED IN LOW AND LOCKED POSITION.NO COMPLAINTS OF PAIN AT THIS TIME. CONTINUOUSLY MONITORED PATIENT. HL ON LT FA INTACT NO S\S INFECTION NOTED BOTH LEGS WITH DVT PUMPS
[2016-10-18] MEDS: MULTIVITAMINS,THERAGRAN 1 UDTAB TABLET GT SCH (08:31)
[2016-10-18] MEDS: ASCORBIC ACID 500 MG TABLET GT SCH (08:31)
[2016-10-18] MEDS: HYDROGEL DRESSING 90 GM TUBE TP SCH (08:32)
[2016-10-18] MEDS: Z GUARD REMEDY 2 OZ OINT TP SCH (08:32)
--- NOTE | 2016-10-18 11:00 | NUR ---
PLANT CHANGER NOTES REPOSITION PATIENT, MOUTH CARE DONE, SUCTION DONE. WILL CONTINUE TO MONITOR ACCORDINGLY
[2016-10-18 12:00] VITALS: BP 132/73
[2016-10-18] MEDS: ACETAMINOPHEN 325 MG TABLET PO PRN (13:43)
[2016-10-18] MEDS ORDERED: MORPHINE SULFATE PF DRIP 250 MG in IV D5W 240 ML IV PRN (14:00)
[2016-10-18 16:00] VITALS: BP 155/73
[2016-10-18] MEDS: HYDROCODONE/APAP 5/325MG 1 EACH TABLET PO PRN (16:16)
--- NOTE | 2016-10-18 16:20 | NUR ---
BOAT CARPENTER NOTE C\O PAIN BOTH LEGS NORCO VIA G TUBE GIVEN
--- NOTE | 2016-10-18 16:30 | NUR ---
PACKAGER MACHINE NOTE CALLED TO [facility] SPOKE WITH [facility] REPORT GIVEN,CALLED JOHN AWARE THAT Y PATIENT WILL BE TRANSFER TO SNF
--- NOTE | 2016-10-18 17:00 | NUR ---
BIOLOGICAL SCIENTIST NOTE BP 155/78 DR POLANCO NOTIFIED OK TO TRANSFER TO SNF
--- NOTE | 2016-10-18 18:44 | NUR ---
SITE ENGINEER NOTE AMBULANCE ARRIVED, REPORT GIVEN, HL ON LT FA INTACT NO S\S INFECTION NOTED , AT BEDSIDE , TELE REMOVED , WATCH WAS TAKEN BY
--- NOTE | 2016-10-18 19:06 | NUR ---
HAND ENGRAVER NOTE WENT TO SNF WITH STABLE CONDITION . AT BEDSIDE
== END 2016-10-18 19:05 | DRG 689 ==
LOC: ER 23:59 → TELE1 10-10 01:52
PROVIDERS: ADMIT Nurse Practitioner Acute Care; ATTEND Nurse Practitioner Acute Care
PROC: 5A1955Z Respiratory Ventilation, Greater than 96 Consecutive Hours (ICD-10-PCS; principal; 2016-10-10)
DX: N39.0 Urinary tract infection, site not specified (principal); R53.2 Functional quadriplegia; Z99.11 Dependence on respirator [ventilator] status; J96.12 Chronic respiratory failure with hypercapnia; G93.1 Anoxic brain damage, not elsewhere classified; E44.0 Moderate protein-calorie malnutrition; Z68.1 Body mass index [BMI] 19.9 or less, adult; R13.10 Dysphagia, unspecified; Z93.0 Tracheostomy status; Z93.1 Gastrostomy status; D63.8 Anemia in other chronic diseases classified elsewhere; E86.0 Dehydration; F03.90 Unspecified dementia, unspecified severity, without behavioral disturbance, psychotic disturbance, mood disturbance, and anxiety; I10 Essential (primary) hypertension; J44.9 Chronic obstructive pulmonary disease, unspecified; K21.9 Gastro-esophageal reflux disease without esophagitis; L89.152 Pressure ulcer of sacral region, stage 2; L89.522 Pressure ulcer of left ankle, stage 2; F09 Unspecified mental disorder due to known physiological condition
CPT/HCPCS: 31720; 36415; 36600; 71010-TC; 80048-TC; 80061-TC; 80076-TC; 81000-TC; 82803-TC; 83690-TC; 83735-TC; 84100-TC; 84443-TC; 85025-TC; 87081-TC; 87086-TC; 94002-TC; 94003-TC; 94761-TC; 94762-TC; A4349; A4606; A4623; A6248; A6402; A6403; J0696; J7050; J7060; Z7610